=== PATIENT | female | born 1950 | race Caucasian/White ===

== ENCOUNTER 2017-01-02 16:49 | Emergency (ER) | payer OTHER, MEDICAID ==
[~2017-01-02] VITALS: Ht 160 cm; Wt 81.2 kg
[~2017-01-02 16:49] MED LIST: SOM350 PO; VIC PO; XANAX2 M1 PO
[2017-01-02 18:24] LABS: BASOPHIL % 0.4 % (0-2); CALCIUM 8.5 mg/dL (8.5-10.1); CARBON DIOXIDE 27.8 mmol/L (21-32); CHLORIDE SERUM 107 mmol/L (98-107); CREATININE SERUM 0.8 mg/dL (0.6-1.0); GFR1 > 60 mL/min; GLUCOSE SERUM 101 mg/dL (74-106); PLATELET COUNT 357 x10^3mcL (130-400); POTASSIUM SERUM 4.2 mmol/L (3.5-5.1); RED CELL DISTRIBUTION WIDTH 14.2 % (11.5-14.5); SODIUM SERUM 144 mmol/L (136-145)
[2017-01-02 18:28] LABS: ALBUMIN 3.5 g/dL (3.4-5.0); ALKALINE PHOSPHATASE 51 U/L (46-116); ALT/SGPT 29 U/L (14-59); AST/SGOT 16 U/L (15-37); BILIRUBIN TOTAL 0.24 mg/dL (0.20-1.00); TOTAL PROTEIN, SERUM 6.8 g/dL (6.4-8.2)
[2017-01-02 18:46] LABS: microscopic required? YES; urine erythrocyte 2+ (NEGATIVE)
[2017-01-02 20:42] VITALS: BP 138/62
== END 2017-01-02 20:42 | disposition home or self-care (01) ==
LOC: ED 16:49
PROVIDERS: Emergency Medicine
DX: R31.9 Hematuria, unspecified (principal); I10 Essential (primary) hypertension; J45.909 Unspecified asthma, uncomplicated; F99 Mental disorder, not otherwise specified; Z79.891 Long term (current) use of opiate analgesic; Z79.2 Long term (current) use of antibiotics; Z79.899 Other long term (current) drug therapy
CPT/HCPCS: 36415; J3010

== ENCOUNTER 2017-01-09 13:14 | Emergency (ER) | payer OTHER, MEDICAID ==
[2017-01-09 16:19] VITALS: BP 123/84
== END 2017-01-09 16:19 | disposition home or self-care (01) ==
LOC: ED 13:14
DX: J45.901 Unspecified asthma with (acute) exacerbation (principal); I10 Essential (primary) hypertension; I49.9 Cardiac arrhythmia, unspecified
CPT/HCPCS: J1885; J7512; Q0092

== ENCOUNTER 2017-12-27 21:57 | Inpatient (IN) | payer OTHER ==
[~2017-12-27] VITALS: Ht 160 cm; Wt 80.7 kg
[2017-12-27 21:59] VITALS: Ht 160 cm; Wt 80.7 kg
[2017-12-27 22:32] LABS: BASOPHIL % 0.7 % (0-2); PLATELET COUNT 322 x10^3mcL (130-400); RED CELL DISTRIBUTION WIDTH 14.4 % (11.5-14.5)
[2017-12-27 22:45] LABS: CARBON DIOXIDE 29.5 mmol/L (21-32); POTASSIUM SERUM 4.1 mmol/L (3.5-5.1)
[2017-12-27 22:54] LABS: ALBUMIN 3.8 g/dL (3.4-5.0); BILIRUBIN TOTAL 0.31 mg/dL (0.20-1.00); CHOLESTEROL/HDL RATIO 3.1; TOTAL PROTEIN, SERUM 7.5 g/dL (6.4-8.2)
[2017-12-27 23:19] LABS: FREE T4 0.73 ng/dL (0.76-1.46); FREE THYROXINE INDEX 2.2 ug/dL (1.4-4.5); T4(THYROXINE) 6.4 ug/dL (4.7-13.3)
[2017-12-27 23:52] LABS: T3 TOTAL 1.24 ng/mL
[2017-12-28 02:13] VITALS: BP 149/75
[2017-12-28 02:39] LABS: PHOSPHOROUS 4.3 mg/dL (2.5-4.9)
[2017-12-28 02:40] LABS: microscopic required? YES; urine erythrocyte 1+ (NEGATIVE)
[2017-12-28] MEDS ORDERED: XANAX1 MG PO (02:47)
[2017-12-28] MEDS ORDERED: MORPHINE SULFAT15 MG PO (02:48)
[2017-12-28] MEDS ORDERED: AMBIEN5 MG PO (02:48)
[2017-12-28] MEDS ORDERED: SOMA350 MG PO (02:49)
[2017-12-28 02:53] LABS: AMPHETAMINE QUAL UR NONE DETECTED (See below)
== END 2017-12-28 03:30 | disposition left against medical advice (07) | DRG 446 ==
LOC: ED 21:57 → DU 12-28 01:12
PROVIDERS: Internal Medicine; Specialist
DX: K80.50 Calculus of bile duct without cholangitis or cholecystitis without obstruction (principal); M79.7 Fibromyalgia; M51.26 Other intervertebral disc displacement, lumbar region; F41.9 Anxiety disorder, unspecified; E02 Subclinical iodine-deficiency hypothyroidism; Z68.31 Body mass index [BMI] 31.0-31.9, adult
CPT/HCPCS: 83880; 84439; J2270; J2405; J3490; J7030; Q0092

== ENCOUNTER 2019-02-05 01:41 | Emergency (ER) | payer OTHER ==
[~2019-02-05] VITALS: Ht 160 cm; Wt 79.8 kg
[~2019-02-05 01:41] MED LIST changes: +AMBIEN5 MG PO; +MORPHINE SULFAT15 MG PO; +SOMA350 MG PO; +XANAX1 MG PO
[2019-02-05 01:42] VITALS: Ht 160 cm; Wt 79.8 kg
[2019-02-05 04:20] VITALS: BP 122/59
== END 2019-02-05 04:20 | disposition left against medical advice (07) ==
LOC: ED 01:41
DX: Z53.21 Procedure and treatment not carried out due to patient leaving prior to being seen by health care provider (principal)

== ENCOUNTER 2019-04-09 17:08 | Emergency (ER) | payer OTHER ==
[~2019-04-09] VITALS: Ht 160 cm; Wt 74.4 kg
[2019-04-09 17:17] VITALS: Ht 160 cm; Wt 74.4 kg
[2019-04-09 20:21] LABS: BASOPHIL % 0.9 % (0-2); PLATELET COUNT 278 x10^3mcL (130-400)
[2019-04-09 20:22] LABS: RED CELL DISTRIBUTION WIDTH 14.7 % (11.5-14.5)
[2019-04-09 20:30] LABS: CALCIUM 8.3 mg/dL (8.5-10.1); CARBON DIOXIDE 27.4 mmol/L (21-32); CHLORIDE SERUM 99 mmol/L (98-107); CREATININE SERUM 0.8 mg/dL (0.6-1.0); GFR1 > 60 mL/min; GLUCOSE SERUM 95 mg/dL (74-106); POTASSIUM SERUM 4.1 mmol/L (3.5-5.1); SODIUM SERUM 136 mmol/L (136-145)
[2019-04-09 20:33] LABS: ALBUMIN 3.7 g/dL (3.4-5.0); ALKALINE PHOSPHATASE 69 U/L (46-116); ALT/SGPT 24 U/L (14-59); AST/SGOT 17 U/L (15-37); BILIRUBIN TOTAL 0.7 mg/dL (0.20-1.00); MAGNESIUM 1.8 mg/dL (1.8-2.4); TOTAL PROTEIN, SERUM 7.3 g/dL (6.4-8.2)
[2019-04-09 21:49] VITALS: BP 131/75
== END 2019-04-09 21:49 | disposition left against medical advice (07) ==
LOC: ED 17:08
PROVIDERS: Emergency Medicine
DX: R53.1 Weakness (principal); E86.0 Dehydration; R51 Headache; F41.9 Anxiety disorder, unspecified; G89.29 Other chronic pain; M54.9 Dorsalgia, unspecified; M79.603 Pain in arm, unspecified
CPT/HCPCS: J1200; J1885; J2405; J2765; J7030

== ENCOUNTER 2020-01-22 06:47 | Day surgery (SDC) | payer OTHER ==
[~2020-01-22] VITALS: Ht 160 cm; Wt 78.9 kg
[2020-01-22 07:23] VITALS: BP 118/63
[2020-01-22 10:32] VITALS: BP 117/58
== END 2020-01-22 10:25 | disposition home or self-care (01) ==
LOC: DS 06:47 → OR 08:00 → DS 08:30 → OR 11:00 → DS 11:00 → OR 11:30
PROVIDERS: ATTEND Internal Medicine
DX: K21.9 Gastro-esophageal reflux disease without esophagitis (principal); K22.70 Barrett's esophagus without dysplasia; K29.50 Unspecified chronic gastritis without bleeding; E66.9 Obesity, unspecified; Z88.5 Allergy status to narcotic agent; Z79.899 Other long term (current) drug therapy; Z11.59 Encounter for screening for other viral diseases; Z80.0 Family history of malignant neoplasm of digestive organs; Z98.890 Other specified postprocedural states
CPT/HCPCS: 43235; J1200; J1610; J2250; J2310; J3010; J3490; U0003-CS